=== PATIENT | female | born 1975 | race Hispanic/Latino ===

== ENCOUNTER 2018-05-31 10:06 | Emergency (ER) | payer MEDICARE ==
[2018-05-31 10:07] VITALS: BMI 51.3
[2018-05-31] MEDS ORDERED: Tmp-Smz 800 mg-160 mg DS Tab PO STA (10:59)
[2018-05-31] MEDS ORDERED: Lidocaine 1% Inj (20ml) IJ STA (11:03)
--- NOTE | 2018-05-31 11:18 | ED PDOC ---
Arrival/HPI - General Historian: Patient - History of Present Illness Narrative History of Present Illness (Text): 05/31/18 11:15 43-year-old female with a history of HIV and hepatitis C presents today with a two-week history of pain and swelling to left upper back. Patient state she has a history of abscess in the past with similar symptoms. Patient states she's been trying warm compresses without improvement. Patient denies chest pain or shortness of breath. Patient notes that the swelling has increased over the past few days. No other complaints <Elzbieta Moeller - Last Filed: 05/31/18 14:26> <Brett Núñez - Last Filed: 06/02/18 17:50> - General Chief Complaint: Abnormal Skin Integrity Time Seen by Provider: 05/31/18 10:54 Past Medical History - Provider Review Nursing Documentation Reviewed: Yes - Travel History Have you recently traveled outside [place] w/in the past 3 mons?: No - Infectious Disease Hx of Infectious Diseases: None - Reproductive Menopause: Yes - Cardiac Hx Cardiac Disorders: No - Pulmonary Hx Respiratory Disorders: Yes Hx Bronchitis: Yes - Neurological Hx Neurological Disorder: Yes Hx Migraine: Yes Hx Seizures: Yes - HEENT Hx HEENT Disorder: No - Renal Hx Renal Disorder: No - Endocrine/Metabolic Hx Endocrine Disorders: Yes Hx Hypothyroidism: Yes - Hematological/Oncological Hx Blood Disorders: Yes - Integumentary Hx Dermatological Disorder: No - Musculoskeletal/Rheumatological Hx Musculoskeletal Disorders: Yes Hx Herniated Disk: Yes - Gastrointestinal Hx Gastrointestinal Disorders: Yes (colitis) - Genitourinary/Gynecological Hx Genitourinary Disorders: Yes Hx Sexually Transmitted Diseases: Yes - Psychiatric Hx Psychophysiologic Disorder: Yes Hx Anxiety: Yes Hx Depression: Yes Hx Substance Use: No - Anesthesia Hx Anesthesia: No Hx Anesthesia Reactions: No Hx Malignant Hyperthermia: No <Elzbieta Moeller - Last Filed: 05/31/18 14:26> Family/Social History - Physician Review Nursing Documentation Reviewed: Yes Family/Social History: Unknown Family HX Smoking Status: Former Smoker Hx Alcohol Use: No Hx Substance Use: No <Elzbieta Moeller - Last Filed: 05/31/18 14:26> Allergies/Home Meds <Elzbieta Moeller - Last Filed: 05/31/18 14:26> <Brett Núñez - Last Filed: 06/02/18 17:50> Allergies/Adverse Reactions: Allergies No Known Allergies Allergy (Verified 05/31/18 10:27) Home Medications: Home Meds Medication Instructions Recorded Confirmed RX: Levothyroxine [Synthroid] 0.2 mg PO DAILY 06/25/16 05/31/18 RX: Oxycodone HCl/Acetaminophen 1 each PO PRN PRN 06/25/16 05/31/18 [Percocet 10-325 mg Tablet] Lopinavir/Ritonavir [Kaletra 2 tab PO Q12 05/31/18 05/31/18 200-50 mg] Review of Systems - Review of Systems Constitutional: absent: Fatigue, Fevers Respiratory: absent: SOB, Cough Cardiovascular: absent: Chest Pain, Palpitations Gastrointestinal: absent: Abdominal Pain, Nausea, Vomiting Genitourinary Female: absent: Dysuria, Frequency, Hematuria Musculoskeletal: absent: Back Pain, Neck Pain Skin: Abscess (left upper back). absent: Pruritis Neurological: absent: Headache, Dizziness Psychiatric: absent: Anxiety, Depression <Elzbieta Moeller T - Last Filed: 05/31/18 14:26> Physical Exam Vital Signs Reviewed: Yes Vital Signs Temp Pulse Resp BP Pulse Ox 05/31/18 10:29 98.8 F 89 16 123/73 99 Temperature: Afebrile Blood Pressure: Normal Pulse: Regular Respiratory Rate: Normal Appearance: Positive for: Well-Appearing, Non-Toxic, Comfortable Pain Distress: None Mental Status: Positive for: Alert and Oriented X 3 - Systems Exam Head: Present: Atraumatic Mouth: Present: Moist Mucous Membranes Neck: Present: Normal Range of Motion Respiratory/Chest: Present: Clear to Auscultation, Good Air Exchange. No: Respiratory Distress, Accessory Muscle Use Cardiovascular: Present: Regular Rate and Rhythm Back: No: Normal Inspection (there is a large 3cm abscess noted to the left upper back: + tenderness, no surrounding erythema. ) Neurological: Present: GCS=15 Skin: Present: Warm, Dry, Normal Color Psychiatric: Present: Alert, Oriented x 3 <Elzbieta Moeller T - Last Filed: 05/31/18 14:26> Vital Signs Temp Pulse Resp BP Pulse Ox 05/31/18 13:04 98.0 F 87 16 106/52 L 96 05/31/18 13:03 98.0 F 87 18 106/52 L 96 05/31/18 12:52 75 18 120/69 100 05/31/18 10:29 98.8 F 89 16 123/73 99 <Brett Núñez - Last Filed: 06/02/18 17:50> Medical Decision Making ED Course and Treatment: 05/31/18 11:18 43yr old female with HIV and Hep C with 2 week hx of abscess to left upper back. toradol bactrim and keflex given pO Surgical residents at bedside. I&D performed at beside. Patient was advised to take antibiotics as prescribed and follow with the primary care physician/surgeon within the next days. She is advised to return if symptoms worsen persist or if new concerning symptoms develop Patient verbalizes understanding of discharge instructions and need for immediate followup. impression; abscess, back Motrin one tablet every 6 hours as needed for pain Keflex; 1 capsule 4 times daily x 7 days. Bactrim DS: One tablet twice daily x7 days Warm compresses and warm soaks frequently Return in 2 days for packing removal and wound check Return immediately if symptoms worsen persist or if new symptoms develop: High fevers, increasing pain, increasing redness, swelling or if any other concerning symptoms develop. - Medication Orders Current Medication Orders: Discontinued Medications Cephalexin Monohydrate (Keflex) 500 mg PO STAT STA; Protocol Stop: 05/31/18 11:00 Ketorolac Tromethamine (Toradol) 60 mg IM STAT STA Stop: 05/31/18 11:00 Lidocaine HCl (Lidocaine 1% (20ml)) 20 ml IJ STAT STA Stop: 05/31/18 11:04 Trimethoprim/Sulfamethoxazole (Bactrim Ds Tab) 1 tab PO STAT STA; Protocol Stop: 05/31/18 11:00 <Elzbieta Moeller - Last Filed: 05/31/18 14:26> ED Course and Treatment: 06/02/18 17:50 The documented history was done by the physician international controller. The documented physical exam was done by the physician international controller. The documented procedures were done by the physician international controller, I was available for consultation during the PA/SHIP ENGINEER evaluation. The chart was reviewed by me, and I agree with the management and plan. - Lab Interpretations Microbiology Results: Microbiology Results 05/31/18 12:15 Back Gram Stain - Final 05/31/18 12:15 Back Wound Culture - Preliminary No growth. - Medication Orders Current Medication Orders: Discontinued Medications Cephalexin Monohydrate (Keflex) 500 mg PO STAT STA; Protocol Stop: 05/31/18 11:00 Last Admin: 05/31/18 11:19 Dose: 500 mg Ketorolac Tromethamine (Toradol) 60 mg IM STAT STA Stop: 05/31/18 11:00 Last Admin: 05/31/18 11:20 Dose: 60 mg MAR Pain Assessment Document 05/31/18 11:20 OCS (Rec: 05/31/18 11:20 OCS [facility]) Pain Reassessment Is this a pain reassessment? No Sleep Is patient sleeping during reassessment? No Presence of Pain Presence of Pain Yes Pain Scale Used Protocol: PSCALES Pain Scale Used Numeric Location Left, Right or Bilateral Left Upper or Lower Upper Pain Location Body Site Back Description Description Constant Intensity of Pain at present 8 Pain Behavior Irritability Facial Grimacing Alleviating Factors/Management Medication Techniques IM Administration Charges Document 05/31/18 11:20 OCS (Rec: 05/31/18 11:20 OCS [facility]) Injection Site MAR Injection Site Left Deltoid Charges for Administration # of IM Administrations 1 Lidocaine HCl (Lidocaine 1% (20ml)) 20 ml IJ STAT STA Stop: 05/31/18 11:04 Lidocaine HCl (Lidocaine 1% 5 Ml) 200 mg IJ STAT STA Stop: 05/31/18 11:40 Trimethoprim/Sulfamethoxazole (Bactrim Ds Tab) 1 tab PO STAT STA; Protocol Stop: 05/31/18 11:00 Last Admin: 05/31/18 11:20 Dose: 1 tab <Brett Núñez - Last Filed: 06/02/18 17:50> Disposition/Present on Arrival - Present on Arrival Any Indicators Present on Arrival: No History of DVT/PE: No History of Uncontrolled Diabetes: No Urinary Catheter: No History of Decub. Ulcer: No History Surgical Site Infection Following: None - Disposition Have Diagnosis and Disposition been Completed?: Yes Disposition Time: 11:19 Patient Plan: Discharge <Elzbieta Moeller - Last Filed: 05/31/18 14:26> <Brett Núñez - Last Filed: 06/02/18 17:50> - Disposition Diagnosis: Abscess of back Disposition: HOME/ ROUTINE Condition: GOOD Discharge Instructions (ExitCare): Boil (DC) Additional Instructions: Motrin one tablet every 6 hours as needed for pain Keflex; 1 capsule 4 times daily x 7 days. Bactrim DS: One tablet twice daily x7 days Warm compresses and warm soaks frequently Return in 2 days for packing removal/wound check Return immediately if symptoms worsen persist or if new symptoms develop: High fevers, increasing pain, increasing redness, swelling or if any other concerning symptoms develop. Prescriptions: Cephalexin [Keflex] 500 mg PO QID #28 capsule Ibuprofen [Motrin] 600 mg PO Q6H PRN #20 tab PRN Reason: pain/fever reduction Sulfamethoxazole/Trimethoprim [Bactrim DS 800 mg-160 mg] 1 tab PO BID #14 tab Referrals: Ning Washburn MD [Primary Care Provider] - Follow up with primary Hira Garzon MD [Staff Provider] - Follow up with primary Forms: [facility] [facility] ([place]), WORK NOTE
[2018-05-31] MEDS ORDERED: Lidocaine 1% 5ml Abboject IJ STA (11:39)
--- NOTE | 2018-05-31 12:34 | CP.PCM.CON ---
History of Present Illness - History of Present Illness History of Present Illness: 43 year old female, past medical history of HIV and Hepatitis C, presents to the emergency department with an abscess on her back. She has a history of abscess in that region previously. Her niece accidentally scratched her in that area a few weeks ago and the lesion getting larger and more painful over time. Patient did not take any pain medication at home. Movement and palpation of the lesion exacerbated the pain. Nothing alleviates the pain. Patient admits to subjective fevers. Denies chills, nausea, vomiting, headache,dizziness, diarrhea, chest pain, palpitations, shortness of breath, or urinary symptoms. PMH: see above PSH: I&D of back abscess ALL: NKDA SH: denies tobacco, alcohol, and drugs Review of Systems - Constitutional Constitutional: Fever. absent: Chills, Headache, Night Sweats - EENT Eyes: absent: Blurred Vision, Change in Vision Nose/Mouth/Throat: absent: Nasal Congestion, Nasal Discharge - Cardiovascular Cardiovascular: absent: Chest Pain, Palpitations - Respiratory Respiratory: absent: Cough, Dyspnea - Gastrointestinal Gastrointestinal: absent: Abdominal Pain, Diarrhea, Nausea, Vomiting - Genitourinary Genitourinary: absent: Change in Urinary Stream, Difficulty Urinating - Musculoskeletal Musculoskeletal: Back Pain. absent: Myalgias - Integumentary Integumentary: Changing Lesions, New Lesions, Skin Pain - Neurological Neurological: absent: Dizziness, Headaches Past Patient History - Infectious Disease Hx of Infectious Diseases: None - Past Social History Smoking Status: Former Smoker - CARDIAC Hx Cardiac Disorders: No - PULMONARY Hx Respiratory Disorders: Yes Hx Bronchitis: Yes - NEUROLOGICAL Hx Neurological Disorder: Yes Hx Migraine: Yes Hx Seizures: Yes - HEENT Hx HEENT Problems: No - RENAL Hx Chronic Kidney Disease: No - ENDOCRINE/METABOLIC Hx Endocrine Disorders: Yes Hx Hypothyroidism: Yes - HEMATOLOGICAL/ONCOLOGICAL Hx Blood Disorders: Yes - INTEGUMENTARY Hx Dermatological Problems: No - MUSCULOSKELETAL/RHEUMATOLOGICAL Hx Musculoskeletal Disorders: Yes Hx Herniated Disk: Yes - GASTROINTESTINAL Hx Gastrointestinal Disorders: Yes (colitis) - GENITOURINARY/GYNECOLOGICAL Hx Genitourinary Disorders: Yes Hx Sexually Transmitted Disorders: Yes - PSYCHIATRIC Hx Psychophysiologic Disorder: Yes Hx Anxiety: Yes Hx Depression: Yes Hx Substance Use: No - SURGICAL HISTORY Hx Surgeries: Yes (, left lumectomy) - ANESTHESIA Hx Anesthesia: No Hx Anesthesia Reactions: No Hx Malignant Hyperthermia: No Meds Home Medications: Home Medication List Medication Instructions Recorded Confirmed Type Cephalexin [Keflex] 500 mg PO QID #28 capsule 05/31/18 Rx Ibuprofen [Motrin] 600 mg PO Q6H PRN #20 tab 05/31/18 Rx Sulfamethoxazole/Trimethoprim 1 tab PO BID #14 tab 05/31/18 Rx [Bactrim DS 800 mg-160 mg] Allergies/Adverse Reactions: Allergies Allergy/AdvReac Type Severity Reaction Status Date / Time No Known Allergies Allergy Verified 05/31/18 10:27 Physical Exam - Constitutional Appears: Well, Non-toxic, No Acute Distress - Head Exam Head Exam: ATRAUMATIC, NORMAL INSPECTION, NORMOCEPHALIC - Eye Exam Eye Exam: EOMI Pupil Exam: PERRL - ENT Exam ENT Exam: Mucous Membranes Moist - Respiratory Exam Respiratory Exam: Clear to Auscultation Bilateral, NORMAL BREATHING PATTERN - Cardiovascular Exam Cardiovascular Exam: REGULAR RHYTHM, +S1, +S2. absent: Systolic Murmur - GI/Abdominal Exam GI & Abdominal Exam: Normal Bowel Sounds, Soft. absent: Tenderness - Neurological Exam Neurological exam: Alert, Oriented x3 - Psychiatric Exam Psychiatric exam: Normal Affect, Normal Mood - Skin Additional comments: abscess vs. infected sebaceous cyst on the left side of back Results - Vital Signs Recent Vital Signs: Last Vital Signs Temp 98.8 F 05/31/18 10:29 Pulse 89 05/31/18 10:29 Resp 16 05/31/18 10:29 BP 123/73 05/31/18 10:29 Pulse Ox 99 05/31/18 10:29 Assessment & Plan - Assessment and Plan (Free Text) Assessment: 43F w/ abscess on the left side of back Plan: -Obtain consent -Incision and drainage of abscess -Packing and dressings -Antibiotics upon discharge -To follow up with Dr. Garzon in 1 week -D/w attending Roger Rey PGY1 - Incision & Drainage Of Abscess Anesthesia: Lidocaine 2% Prep Used: Betadine Procedure: Incised W/Scalpel Blade#: (11), Drained Pus (10cc), Irrigated Cavity W/Saline, Probed To Break Up Loculations, Packed W/Gauze (iodoform), Cultures Obtained And Sent To Lab (Consent obtained. Patient prepped with betadine. Sterile drapes applied. 6cc of 2% Lidocaine injected. Incised and drainged abscess. No complications duringthe procedure. Patient tolerated procedure. )
[2018-05-31 13:04] VITALS: BP 106/52; PULSE 87; TEMP 98; O2SAT 96
[2018-05-31 13:05] VITALS: RESP 16
== END 2018-05-31 13:04 | disposition home or self-care (01) ==
LOC: ED 10:06
DX: L02.212 Cutaneous abscess of back [any part, except buttock and flank] (principal); Z21 Asymptomatic human immunodeficiency virus [HIV] infection status; E03.9 Hypothyroidism, unspecified; B19.20 Unspecified viral hepatitis C without hepatic coma; Z87.891 Personal history of nicotine dependence
CPT/HCPCS: 10060; 87070; 96372; 99283; J1885